=== PATIENT | female | born 1945 | race Caucasian/White ===

== ENCOUNTER → 2018-03-02 09:57 | Outpatient (CLI) | payer MEDICARE, BC, SELFPAY ==
--- NOTE | 2018-03-02 | IMM_PTH ---
PATIENT: ZAINA VYAS LOC: [facility] U#:[id number] AGE/SX: 79/F ROOM: RE03/02/[address]: Dr. Naeem Hook MD : 1945 BED: DIS: SPEC #: [id number] RECD: 03/03/18 13:16 STATUS: RADHA RICK #: [id number] ERIC: 03/02/18 00:[address]: Naeem oHok DEPT: IMMUNOHISTOCHEMISTRY RECD BY: Luz Marina Qiu ENTERED: 03/03/18 13:17 SP TYPE: IMMUNO OTHR DR: Dr. Luther Dye MD Tissues: Right breast, NOS Procedures: CK8 (add) Smooth Muscle Actin P40 (add) PHYSICIAN & INSTITUTION [place] [address] SPECIMEN INFORMATION: Tissue Source: Right breast Clinical Info: Right outer lower quadrant breast microcalcifications Specimen Number: [id number] #1 CPT code: 20377, 15501 x2 METHODOLOGY: Deparaffinized sections of prefer/formalin-fixed tissue or PAP/DQ stained slides are incubated with monoclonal/polyclonal antibodies/oligonucleotide probes. Localization is made via biotin free immunoperoxidase method. Appropriate controls are performed and reacted as expected. Results on target cell population are indicated in the following table: RESULTS: ANTIBODY / CLONE RESULT Block 1 Actin (1A4) positive P40 (BC28) positive CK8 ([id number]) positive These tests were developed and their performance characteristics determined by [facility]. They may not have been cleared or approved by the U.S. Food and Drug Administration. The FDA has determined that such clearance or approval is not necessary. INTERPRETATION: Right breast, stereotactic core biopsy: Benign breast tissue with involutional change. AM:francesca 03/04/18
--- NOTE | 2018-03-02 10:30 | BRBX_PTH ---
PATIENT: ZAINA VYAS LOC: [facility] U#:[id number] AGE/SX: 79/F ROOM: RE03/02/[address]: Dr. Naeem Hook MD : 1945 BED: DIS: SPEC #: [id number] RECD: 03/02/18 13:36 STATUS: RADHA RICK #: [id number] ERIC: 03/02/18 10:[address]: Naeem Hook DEPT: SURGICAL PATHOLOGY RECD BY: Cody Sewell ENTERED: 03/02/18 13:36 SP TYPE: BREAST BX OTHR DR: Dr. Luther Dye MD Tissues: Right breast, NOS Procedures: Surgery Specimen Level IV HEADER OPERATION: Right stereotactic breast biopsy PRE-OP DIAGNOSIS: Right outer lower quadrant breast microcalcifications TISSUE SUBMITTED: Right breast core tissue ISCHEMIC TIME: 1 minute FIXATION TIME: 9 hours MICROSCOPIC DIAGNOSIS Right breast, stereotactic needle core biopsy: Hyalinized fibroadenoma with associated microcalcifications. Involutional change. No evidence of malignancy. AM:francesca 03/03/18 COMMENT Immunohistochemistry ([id number]) supports the above diagnosis. Case has been reviewed in consultation with Dr. Skaggs who concurs with the above diagnosis. IDC:ANUM MICROSCOPIC DESCRIPTION Slides are reviewed. GROSS DESCRIPTION Received is one container labeled with the patient's name and not further designated. The specimen consists of multiple elongated fragments of styles-yellow fibroadipose tissue that in aggregate measure 4 x 3 x 0.3 cm. The entire specimen is submitted in two cassettes. / ANUM:francesca 03/02/18 TC:5 CPT: 88460
--- NOTE | 2018-03-02 10:48 | PCM.OPRPT ---
Problem List (1) Abnormal mammogram of right breast Status: Acute Report of Operation Date of Procedure: 03/02/18 Pre-Operative Diagnosis: Abnormal mammogram, clustered calcifications lower outer right breast Post-Operative Diagnosis: Same Surgery/Procedure Performed:: Stereotactic needle core biopsy lower outer right breast Description of Surgical Findings:: Timeout and informed consent was obtained. 72-year-old female was taken to the stereotactic room. She was placed prone on the table. The right breast was placed in a lateral medial view. The microcalcifications in question rapidly identified. Stereotactic images were obtained. Single target site was selected. The breast was prepped with Betadine. 1% lidocaine was used as local anesthetic. Total of 8 cc was used. A small stab incision was created. An 8-gauge resolve needle was advanced to prefire depth. Prefire films were obtained demonstrating adequate localization. The device was then fired. 6 cores were obtained. Specimen mammograms were obtained demonstrating 1 of the cores to have the majority if not all of the microcalcifications present. A marking clip was left at the 12 o'clock position. She was released from the device. Pressure was held for hemostasis. Steri-Strips Telfa OpSite dressing applied. She was given activity and wound care instructions. The specimens are submitted in formalin for analysis. Specimens include the 6 breast cores. Drains none. Blood loss minimal. Naeem Hook M.D., F.A.C.S.
== END ==
PROVIDERS: Family Provider Family Medicine; PCP Family Medicine; Visit Provider Surgery
DX: D24.1 Benign neoplasm of right breast (principal); Z85.3 Personal history of malignant neoplasm of breast; M19.90 Unspecified osteoarthritis, unspecified site; K21.9 Gastro-esophageal reflux disease without esophagitis; R92.8 Other abnormal and inconclusive findings on diagnostic imaging of breast; Z79.899 Other long term (current) drug therapy
CPT/HCPCS: 19081; 88305; 88341; 88342; J7050

== ENCOUNTER → 2020-09-14 13:14 | Outpatient (CLI) | payer MEDICARE, BC, SELFPAY ==
[2020-09-05 13:42] VITALS: BMI 33.7
--- NOTE | 2020-09-14 13:18 | CT_ITS ---
STUDY: CT CHEST WITHOUT CONTRAST REASON FOR EXAM: Female, 75 years old. Chronic cough - exposure to silica RADIATION DOSAGE (If Supplied By Facility): CTDIvol = ( 13.06 ) mGy, DLP = ( 420.85 ) mGycm TECHNIQUE: Transaxial imaging was performed without the administration of intravenous contrast material. Multiplanar coronal and sagittal images were reformatted. Individualized dose optimization techniques were used for this CT. COMPARISON: None. FINDINGS: Small benign appearing right lateral axillary lymph nodes. Surgical clips seen in the right axillary region. Surgical clips are seen in the deep portion of the right breast. A 2.2 cm x 1.8 cm nodular density is seen at the biopsy site. This may represent postbiopsy scarring. Overlying thickening of the skin of the right breast. Calcified granuloma in the posterior aspect of the left upper lobe adjacent to the left major fissure. There is a 3.8 mm noncalcified nodule in the posterior aspect of the right lower lobe as seen on axial image #54. A 1 mm noncalcified nodule is also seen in the posterior aspect of the right upper lobe abutting the right minor fissure as seen on axial image #52. Mild scarring in the anterior medial aspect of the right lower lobe. There is no demonstrated pleural abnormality. There are calcifications of the coronary arteries. Mildly enlarged mediastinal lymph nodes. The largest measuring 1.9 cm this is in the precarinal space. Normal hilar regions. Normal unenhanced pulmonary arteries. Normal aorta arch and descending thoracic aorta. There are multi-level degenerative changes of the thoracic spine. There is no demonstrated abnormality of the visualized upper abdomen. CT/Chest without Contrast IMPRESSION: Surgical clips are seen in the right axilla as well as within the irregular nodular density in the right breast with overlying breast thickening. Clinical correlation is recommended. 3.8 mm noncalcified nodule in the posterior aspect of the right lower lobe as well as in the posterior aspect of the right upper lobe abutting the right minor fissure. 12 month follow-up is recommended. Electronically Signed: Mikhail Ogden MD at 13:45 EST , Service support ,
== END ==
PROVIDERS: PCP Family Medicine; Referring Provider Internal Medicine Critical Care Medicine; Visit Provider Internal Medicine Critical Care Medicine
DX: R05 Cough (principal); Z77.29 Contact with and (suspected) exposure to other hazardous substances
CPT/HCPCS: 71250

== ENCOUNTER → 2020-10-04 11:04 | Outpatient (CLI) | payer MEDICARE, BC, SELFPAY ==
[2020-09-05 13:42] VITALS: BMI 33.7
[2020-10-04 11:31] VITALS: PULSE 100; PULSE 101; PULSE 102; PULSE 93; PULSE 94; PULSE 98; O2SAT 93; O2SAT 94; O2SAT 96
--- NOTE | 2020-10-05 10:23 | PCM.PSN.6M ---
PSN 6 Minute Walk Test - 6 Minute Walk Test 6 Minute Walk Test: 6 Minute Walk Test PSN:6-Minute Walk Test Start: 10/04/20 11:31 Freq: Status: Active Protocol: RESP.6MINW Document 10/04/20 11:31 DANICA (Rec: 10/04/20 11:33 DANICA [id number]) 6 Minute Walk Test Date Performed 10/04/20 Time Performed 11:15 Height 4 ft 11 in Weight: 160 lb Weight in Pounds 160.[address]: Lowell Rader Assistive device used: None Pre-test Oxygen Delivery Method Room Air Pulse Ox (%) 96 Pulse Rate (60-100 beats/min) 94 Dyspnea Karen Scale (0-10) 0 Exertion Karen Scale (6-20) 6 1st minute Oxygen Delivery Method Room Air Pulse Ox (%) 94 Pulse Rate (60-100 beats/min) 98 2nd minute Oxygen Delivery Method Room Air Pulse Ox (%) 94 Pulse Rate (60-100 beats/min) 101 H 3rd minute Pulse Ox (%) 93 Pulse Rate (60-100 beats/min) 102 H 4th minute Pulse Ox (%) 94 Pulse Rate (60-100 beats/min) 102 H 5th minute Oxygen Delivery Method Room Air Pulse Ox (%) 93 Pulse Rate (60-100 beats/min) 101 H 6th minute Oxygen Delivery Method Room Air Pulse Ox (%) 94 Pulse Rate (60-100 beats/min) 100 Dyspnea Karen Scale (0-10) 1 Exertion Karen Scale (6-20) 12 Post-test Oxygen Delivery Method Room Air Pulse Ox (%) 96 Pulse Rate (60-100 beats/min) 93 Full Laps Walked 17 Partial Lap, Number of Tiles Walked 0 Total Distance Walked (ft) 1003 - Interpretation Interpretation: The patient ambulated 1003 feet over the course of 6 minutes beginning on room air without assistive devices or breaks. Pretesting oxygen saturation was noted to be 96% on room air. With ambulation, the laverne oxygen saturation was 93%. There was no significant exertional oxygen desaturation. - Recommendations Recommendations: There is no indication for the use of supplemental oxygen at this time.
== END ==
PROVIDERS: PCP Family Medicine; Referring Provider Internal Medicine Critical Care Medicine; Visit Provider Internal Medicine Critical Care Medicine
DX: R05 Cough (principal); Z77.29 Contact with and (suspected) exposure to other hazardous substances
CPT/HCPCS: 94618

== ENCOUNTER 2021-05-31 08:30 | Day surgery (SDC) | payer MEDICARE, BC, SELFPAY ==
[2021-02-07 14:52] VITALS: BMI 33.9
[2021-05-31 08:54] VITALS: BP 171/86; PULSE 95; RESP 20; TEMP 35.8; O2SAT 100; BMI 33.3
--- NOTE | 2021-05-31 09:06 | PCM.HP.BLA ---
History and Physical Date of Admission: 05/31/21 Intake Intake Visit Reasons: DISCUSS CSCOPE/ ISSUE PREP INSTRUCTIONS Allergies prednisone Allergy (Verified 04/30/21 14:13) Other sulfamethoxazole [From Bactrim] Allergy (Verified 04/30/21 14:13) Rash trimethoprim [From Bactrim] Allergy (Verified 04/30/21 14:13) Rash blue dyes Allergy (Intermediate, Uncoded 04/30/21 14:13) rash Medications simvastatin 40 mg PO QHS 02/06/16 [History Confirmed 02/12/21] mometasone 0.1 % topical cream 1 applic TOPICAL QDAY 02/19/18 [History Confirmed 02/12/21] calcium polycarbophil [FiberCon] 1,250 mg PO BID 02/12/21 [History Confirmed 02/12/21] cholecalciferol (vitamin D3) 50 mcg (2,000 unit) capsule 50 mcg PO DAILY 04/30/21 [History Confirmed 04/30/21] [facility] Medical History Abnormal mammogram of right breast Acid reflux Arthritis Breast cancer, right Chronic coughing Family history of colon cancer in mother Fatigue High cholesterol History of diverticulitis History of right breast cancer Non-smoker Restless legs Surgical History History of biopsy History of colonoscopy (~2016) History of lumpectomy of right breast (02/13/16) History of tubal ligation (~1970) Family History Mother Colon cancer Father Cancer prostate Sister Throat cancer Social History Smoking Status: Never smoker second hand exposure: No alcohol intake: never substance use type: does not use caffeine: No what type of physical activity do you participate in: none frequency: does not exercise HPI HPI HPI: ZAINA VYAS, is a 75 F who presents to the office today for an update history and physical. She denies recent hospitalizations or illnesses. She states she was previously scheduled for a colonoscopy in February however the prep she was given did not agree with her. She states she passed out after taking the Dulcolax tablets. She was advised to stop those and take the Miralax mixture which she was not able to complete due to nausea and vomiting. Patient then called into the office to cancel the scope. She has had multiple previous scopes without any concerns. She never recalls taking the Dulcolax tablets for any of her previous procedures. Patient's previous history per Dr. Hook: ZAINA VYAS, is a 75 F who presents to the office today for surgical consultation regarding a possible rectal mass. The patient is referred by Dr. Luther Dye and a written copy of my surgical consult and recommendations will return to him. The patient is complaining of incomplete emptying of her bowels. It was recommended that she initiate FiberCon capsules and possibly a probiotic. On physical examination there was felt to be a ridge or scar posterior tissue of the rectum. 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 On March 02, 2018 performed a stereotactic core biopsy lower outer right breast for microcalcifications I have records of a colonoscopy performed July 23, [address] Pedro Brown performed at [facility], [place], [place]. Preoperative diagnosis was family history of colon cancer and a personal history of colon polyps. Diverticulosis was identified. A 4 mm sessile polyp the sigmoid identified a 3 mm rectal polyp removed with snare cautery. Follow-up colonoscopy in 5 years recommended. She had one prior to that July 09, 2010 which showed sigmoid diverticulosis and hemorrhoids. She had 1 prior July 10, 2005 showing sigmoid diverticulosis and hemorrhoids. On her most recent exam of July 23, 2016 both the sigmoid and rectal polyps were hyperplastic. On questioning her it seems apparent that perhaps over a period of 3 years she has had some inconsistent change of bowel habits. She has previously had x-rays suggesting some chronic constipation. Her biggest trouble is in the morning she does not feel like she completely evacuates. She still has all this problem occurred after she had a bout of food poisoning. She has had a personal history of colon polyps. She has a family history of colon cancer in her mother. ROS General General: Yes fatigue and breast cancer; No weight change, appetite, colon cancer or weakness HEENT HEENT: No difficulty swallowing, eye injury, eye surgery, swollen glands or hoarseness Endo Endocrine: No thyroid disease, diabetes mellitus, thyroid cancer, Hair loss, heat intolerance or cold intolerance Skin Skin: No rash or changing moles Musc Musculoskeletal: Yes arthritis; No back problems, rheumatoid arthritis, gout or joint pain Cardio Cardiovascular: No murmur, pacemaker, heart disease, atrial fibrillation, high blood pressure, heart attack, heart stent, palpitations, shortness of breat with exertion or chest pain Psych Psychiatric: No depression, anxiety or hearing voices Resp Respiratory: No shortness of breath, No sleep apnea, No cough, No COPD, No asthma, No emphysema and No wheezing Gastro Gastrointestinal: No abdominal pain, No nausea or vomiting, No diarrhea, No constipation, No blood in stool, No acid reflux, No hemorrhoids, No ulcers, No gallbladder problem and No black,tarry stools Jalen Hematologic: No blood thinners, No blood disorders, No bleeding, No anemia and No blood clots Neuro Neurologic: No weakness Exam Const General: cooperative, healthy appearing, comfortable and no acute distress HENMT Head: normal to inspection Eyes General: appearance normal, both eyes and all related structures Neck Neck: normal visual inspection Neck mass: No Resp Effort & Inspection: normal respiratory effort Auscultation: clear to auscultation bilaterally Cardio Rate: regular rate Rhythm: regular rhythm GI Inspection: normal to inspection Palpation: soft Auscultation: normal bowel sounds Skin General: no rashes or lesions noted Neuro General: no focal motor deficits and CN's II-XI intact bilaterally Extrem General: normal to inspection Psych Appearance: grossly normal Affect: normal affect Assessment and Plan Assessment and Plan (1) Change in bowel habit: Status: Acute Comment: Refer for ongoing change of bowel habit and possible rectal mass. On my clinical exam I cannot confirm the rectal mass but the patient clearly is at increased risk. I recommend to her a colonoscopy with possible biopsy or polypectomy as indicated. Very careful inspection of the anal rectal area will be pursued. If no obstructive findings are identified and monitoring will recommend to the patient with bowel regimen utilizing MiraLAX. I appreciate the opportunity of assisting with surgical care Copy: Dr Luther Hook M.D., F.A.C.S. Maria E - Sameera WEINER, PA-C: Dr. Hook will plan to perform a colonoscopy with possible biopsies. Procedure details, risks and benefits have been reviewed. Prep instructions have been discussed with the patient. It has been agreed upon to perform 2 days of clear liquids. Day 1 she will do a bottle of magnesium citrate and day 2 she will do the Miralax mixture. We will hold off on any Dulcolax tablets. Patient has had the opportunity to ask and have questions answered. Patient verbally understands and agrees with the plan. H&P performed today Naeem Hook M.D., F.A.C.S.
[2021-05-31] MEDS: Lactated Ringers 1,000 ML 15 ML IV (09:09)
--- NOTE | 2021-05-31 09:45 | COLBX_PTH ---
PATIENT: ZAINA VYAS LOC: [facility] U#:[id number] AGE/SX: 75/F ROOM: RE05/31/[address]: Dr. Naeem Hook MD : 1945 BED: DIS: 05/31/2021 SPEC #: [id number] RECD: 05/31/21 13:09 STATUS: RADHA CABRERA #: [id number] ERIC: 05/31/21 09:[address]: Naeem Hook DEPT: SURGICAL PATHOLOGY RECD BY: Jaimie Coleman ENTERED: 05/31/21 14:23 SP TYPE: COLON BX OTHR DR: Dr. Luther Dye MD Tissues: Transverse colon Procedures: Surgery Specimen Level IV HEADER OPERATION: Colonoscopy (MAC) PRE-OP DIAGNOSIS: Change in bowel habit TISSUE SUBMITTED: Distal transverse polyp MICROSCOPIC DIAGNOSIS Distal transverse colon polyp, biopsy: Consistent with benign mucosal lipoma. Fragments of fecal material. SJ:francesca 06/03/2021 MICROSCOPIC DESCRIPTION Slides are reviewed. GROSS DESCRIPTION Received in fixative is one container labeled with the patient's name and designated distal transverse polyp. The specimen consists of multiple irregular fragments of light styles soft tissue that in aggregate measure 2 x 0.6 x 0.1 cm. The specimen is totally submitted in one cassette. / AM:francesca 05/31/21 TC:1 CPT: 60263
[2021-05-31 10:35] VITALS: BP 123/61; BP 171/86; PULSE 73; RESP 16; TEMP 36.4; O2SAT 95
--- NOTE | 2021-05-31 10:38 | OP.CCLET_ITS ---
05/31/2021 Luther Dye Re : Colonoscopy procedure for Sussy Varner Dear Hardik This procedure was performed on Monday, May 31, 2021. My impressions and recommendations are as follows: Impressions : - Non-thrombosed internal hemorrhoids and internal hemorrhoids that prolapse with straining, but require manual replacement into the anal canal (Grade III) found on digital rectal exam. - Non-thrombosed external hemorrhoids and internal hemorrhoids that prolapse with straining, but spontaneously regress to the resting position (Grade II) found on digital rectal exam. - Diverticulosis in the sigmoid colon and in the descending colon. - One 6 mm polyp in the distal transverse colon, removed with a hot snare. Resected and retrieved. - The examination was otherwise normal. Recommendations : - Discharge patient to home. - Resume previous diet. - Continue present medications. - Repeat colonoscopy in 5 years for surveillance based on pathology results. - Telephone my office for pathology results in 1 week. No rectal mass identified on clinical examination nor on colonoscopy. Hemorrhoids noted. My findings are described in the full procedure note, which is enclosed. If I can be of further assistance, please feel free to contact me at Doctor phone number(s): Work: . Sincerely, Naeem Hook MD 05/31/2021 10:38:14 AM This report has been signed electronically.
--- NOTE | 2021-05-31 10:38 | OP.COLON_ITS ---
Patient Name: Sussy Varner Procedure Date: 05/31/2021 10:00 AM Date of : 1945 Age: 75 Procedure: Colonoscopy Indications: Rectal mass Providers: Naeem Hook MD Referring MD: Luther Dye Medicines: See the Anesthesia note for documentation of the administered medications Patient Profile: Last Colonoscopy: May 2017. Complications: No immediate complications. Procedure: Pre-Anesthesia Assessment: - Prior to the procedure, a History and Physical was performed, and patient medications and allergies were reviewed. The patient's tolerance of previous anesthesia was also reviewed. The risks and benefits of the procedure and the sedation options and risks were discussed with the patient. All questions were answered, and informed consent was obtained. Prior Anticoagulants: The patient has taken no previous anticoagulant or antiplatelet agents. ASA Grade Assessment: II - A patient with mild systemic disease. After reviewing the risks and benefits, the patient was deemed in satisfactory condition to undergo the procedure. After I obtained informed consent, the scope was passed under direct vision. Throughout the procedure, the patient's blood pressure, pulse, and oxygen saturations were monitored continuously. The Colonoscope was introduced through the anus and advanced to the cecum, identified by appendiceal orifice and ileocecal valve. The colonoscopy was performed without difficulty. The patient tolerated the procedure well. The quality of the bowel preparation was good. The ileocecal valve and the appendiceal orifice were photographed. Scope In: 10:11:23 AM Scope Withdrawal Time 0 hours 10 minutes 20 seconds Scope Out: 10:30:30 AM Total Procedure Duration Time 0 hours 19 minutes 7 seconds Findings: The digital rectal exam findings include non-thrombosed internal hemorrhoids and internal hemorrhoids that prolapse with straining, but require manual replacement into the anal canal (Grade III). The digital rectal exam findings include non-thrombosed external hemorrhoids and internal hemorrhoids that prolapse with straining, but spontaneously regress to the resting position (Grade II). Multiple diverticula were found in the sigmoid colon and descending colon. A 6 mm polyp was found in the distal transverse colon. The polyp was sessile. The polyp was removed with a hot snare. Resection and retrieval were complete. The exam was otherwise without abnormality. Impression: - Non-thrombosed internal hemorrhoids and internal hemorrhoids that prolapse with straining, but require manual replacement into the anal canal (Grade III) found on digital rectal exam. - Non-thrombosed external hemorrhoids and internal hemorrhoids that prolapse with straining, but spontaneously regress to the resting position (Grade II) found on digital rectal exam. - Diverticulosis in the sigmoid colon and in the descending colon. - One 6 mm polyp in the distal transverse colon, removed with a hot snare. Resected and retrieved. - The examination was otherwise normal. Recommendation: - Discharge patient to home. - Resume previous diet. - Continue present medications. - Repeat colonoscopy in 5 years for surveillance based on pathology results. - Telephone my office for pathology results in 1 week. No rectal mass identified on clinical examination nor on colonoscopy. Hemorrhoids noted. Procedure Code(s): --- Professional --- 56713, Colonoscopy, flexible; with removal of tumor(s), polyp(s), or other lesion(s) by snare technique Diagnosis Code(s): --- Professional --- K64.2, Third degree hemorrhoids K64.4, Residual hemorrhoidal skin tags D12.3, Benign neoplasm of transverse colon (hepatic flexure or splenic flexure) K62.89, Other specified diseases of anus and rectum K57.30, Diverticulosis of large intestine without perforation or abscess without bleeding CPT copyright 2017 [employer]. All rights reserved. The codes documented in this report are preliminary and upon hand inserter operator review may be revised to meet current compliance requirements. Naeem Hook MD 05/31/2021 10:38:14 AM This report has been signed electronically. Number of Addenda: 0 Note Initiated On: 05/31/2021 10:00 AM
[2021-05-31 10:40] VITALS: BP 120/69; BP 171/86; PULSE 80; RESP 16; O2SAT 95
[2021-05-31 10:45] VITALS: BP 130/70; BP 171/86; PULSE 71; RESP 16; O2SAT 96
[2021-05-31 10:50] VITALS: BP 132/71; BP 171/86; PULSE 72; RESP 16; TEMP 36.2; O2SAT 96
[2021-05-31 11:10] VITALS: BP 171/86
== END 2021-05-31 11:32 | disposition home or self-care (01) ==
LOC: EN 08:33 → AC 08:34
PROVIDERS: PCP Family Medicine; Referring Provider Family Medicine; Visit Provider Surgery
PROC: 0DJD8ZZ Inspection of Lower Intestinal Tract, Via Natural or Artificial Opening Endoscopic (ICD-10-PCS; CPT 45378; principal; 2021-05-31 09:40)
DX: Z12.11 Encounter for screening for malignant neoplasm of colon (principal); D12.3 Benign neoplasm of transverse colon; K57.30 Diverticulosis of large intestine without perforation or abscess without bleeding; K64.2 Third degree hemorrhoids; K64.1 Second degree hemorrhoids; K64.4 Residual hemorrhoidal skin tags; E78.00 Pure hypercholesterolemia, unspecified; R05.9 Cough, unspecified; M19.90 Unspecified osteoarthritis, unspecified site; Z87.19 Personal history of other diseases of the digestive system; Z80.0 Family history of malignant neoplasm of digestive organs; Z85.3 Personal history of malignant neoplasm of breast; Z79.899 Other long term (current) drug therapy
CPT/HCPCS: 45385; 88305; J7120

== ENCOUNTER → 2021-12-16 | Outpatient (CLI) | payer MEDICARE, BC, SELFPAY ==
--- NOTE | 2021-12-16 13:27 | CT_ITS ---
STUDY: CT CHEST WITHOUT CONTRAST REASON FOR EXAM: Female, 76 years old. RLL nodule RADIATION DOSAGE (If Supplied By Facility): CTDIvol = ( 11.43 ) mGy, DLP = ( 391.23 ) mGycm TECHNIQUE: Transaxial imaging was performed without the administration of intravenous contrast material. Multiplanar coronal and sagittal images were reformatted. Individualized dose optimization techniques were used for this CT. COMPARISON: Comparison is made with prior study dated 09/14/2020. FINDINGS: CHEST Stable small right axillary lymph nodes. A surgical clip is once again seen in the right axilla. Stable 2.2 cm nodular density in the right breast at the biopsy site. Stable 5.5 mm granuloma in the left upper lobe. Stable 3.8 mm noncalcified nodule in the posterior aspect of the right lower lobe as seen on axial image #51. 1 mm noncalcified nodule also seen in the posterior aspect of the right upper lobe abutting the right minor fissure as seen on axial image #46. There is no demonstrated pleural abnormality. There are calcifications of the coronary arteries. There are multiple small lymph nodes within the mediastinum, which are normal in size and morphology most compatible with reactive lymph hyperplasia. Normal hilar regions. Normal unenhanced pulmonary arteries. There is atherosclerotic calcification of the aortic arch with tortuosity and elongation of the aortic arch and descending thoracic aorta. There are multi-level degenerative changes of the thoracic spine. Diffuse fatty infiltration of the liver. Solitary gallstone measuring 1.[address]/Chest without Contrast IMPRESSION: Essentially stable examination. Electronically Signed: Mikhail Ogden MD at 14:51 EDT ,
== END | disposition home or self-care (01) ==
LOC: CT 13:17
PROVIDERS: PCP Family Medicine; Referring Provider Internal Medicine Critical Care Medicine; Visit Provider Internal Medicine Critical Care Medicine
DX: R91.1 Solitary pulmonary nodule (principal)
CPT/HCPCS: 71250

== ENCOUNTER → 2022-05-05 | Outpatient (CLI) | payer MEDICARE, BC, SELFPAY ==
--- NOTE | 2022-05-05 14:15 | US_ITS ---
STUDY: ULTRASOUND BREAST - RIGHT REASON FOR EXAM: Female, 76 years old. Palpable lump in the right breast. History of right breast cancer. TECHNIQUE: Axial and longitudinal images of the RIGHT breast were performed with a high resolution ultrasound transducer. # OF IMAGES: 43 COMPARISON: None. FINDINGS: RIGHT Breast: The palpable abnormality corresponds to a 1.3 cm x 1.5 cm x 2.2 cm hypoechoic irregular nodular density with posterior acoustical shadowing at the 12 o''clock position of the breast at 5 cm from the nipple. A biopsy is recommended. US/Breast Limited Unilateral IMPRESSION: The palpable abnormality corresponds to a 1.3 cm x 1.5 cm x 2.2 cm hypoechoic irregular nodular density with posterior acoustical shadowing at the 12 o''clock position the breast at 5 cm from nipple. Biopsy recommended. ASSESSMENT CATEGORY: BIRADS Category 4: Suspicious - Biopsy Should Be Considered. A letter regarding these results will be sent to the patient by the facility within 30 days. Electronically Signed: Mikhail Ogden MD at 15:31 EDT ,
--- NOTE | 2022-05-05 14:58 | BI_ITS ---
MAMMOGRAPHY - BILATERAL SCREENING REASON FOR EXAM: Female, 76 years old. Routine annual screening examination. PERTINENT HISTORY: Personal history of breast cancer. Prior right lumpectomy. Palpable lump in the right breast. TECHNIQUE: Digital bilateral breast gabriela (3D mammographic acquisition) in the CC and MLO projections. 2-D mediolateral oblique (MLO) and craniocaudad (CC) views of both breasts were obtained. CAD: Full Field Digital Mammography with Computer Added Detection was performed. COMPARISON: Comparison is made with prior outside mammogram dated 01/31/2022. FINDINGS: Breast Composition: There are scattered areas of fibroglandular density. The patient is status post lumpectomy in the deep upper central portion of the right breast. There is evidence of postsurgical scarring and irregular speculated nodular density measuring 2.7 cm x 1.2 cm. Correlation with ultrasound is recommended for further evaluation. No other significant abnormalities are identified. BI/DIAG MAMM W/CAD, UNILAT IMPRESSION: Status post lumpectomy in the deep upper central portion of the right breast with resultant postoperative architectural distortion and soft tissue density. Correlation with ultrasound is recommended. ASSESSMENT CATEGORY: BIRADS Category 0: Incomplete. Need additional imaging evaluation. A letter regarding these results will be sent to the patient by the facility within 30 days. Approximately 10% of breast cancers are not detected by mammography. A normal mammogram should not delay biopsy of a clinically suspicious abnormality. [id number] Electronically Signed: Mikhail Ogden MD at 15:40 EDT ,
== END | disposition home or self-care (01) ==
PROVIDERS: PCP Family Medicine; Visit Provider Nurse Practitioner
DX: C50.211 Malignant neoplasm of upper-inner quadrant of right female breast (principal)
CPT/HCPCS: 76642; 77061; 77065; G0279

== ENCOUNTER → 2022-05-13 | Outpatient (CLI) | payer MEDICARE, BC, SELFPAY ==
--- NOTE | 2022-05-13 15:45 | BRBX_PTH ---
PATIENT: ZAINA VYAS LOC: [facility] U#:[id number] AGE/SX: 76/F ROOM: RE05/13/[address]: Dr. Naeem Hook MD : [id number] BED: DIS: 05/13/2022 SPEC #: [id number] RECD: 05/13/22 16:11 STATUS: RADHA CABRERA #: [id number] ERIC: 05/13/22 15:[address]: Naeem Hook DEPT: SURGICAL PATHOLOGY RECD BY: Denisse Verduzco ENTERED: 05/14/22 08:34 SP TYPE: BREAST BX OTHR DR: Dr. Luther Dye MD Tissues: Right breast, NOS Procedures: Surgery Specimen Level IV HEADER OPERATION: Right breast biopsy PRE-OP DIAGNOSIS: Right breast mass TISSUE SUBMITTED: Right breast tissue ISCHEMIC TIME: 1 minute FIXATION TIME: 28 hours MICROSCOPIC DIAGNOSIS Right breast mass, core biopsy: Densely collagenized stroma with focal elastosis. No evidence of malignancy. AM:francesca 05/15/2022 MICROSCOPIC DESCRIPTION Slides are reviewed. GROSS DESCRIPTION Received in fixative is one container labeled with the patient's name and designated right breast biopsy. The specimen consists of two elongated cores of styles-yellow tissue measuring 1.2 cm in average length and 0.2 cm in diameter. The specimen is totally submitted in one cassette. / AM:francesca 05/14/2022 TC:5 CPT: 75699
== END | disposition home or self-care (01) ==
LOC: LABSPEC 16:18
PROVIDERS: PCP Family Medicine; Visit Provider Surgery
DX: N63.10 Unspecified lump in the right breast, unspecified quadrant (principal)
CPT/HCPCS: 88305